=== PATIENT | female | born 2000 | race African-American/Black ===

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

== ENCOUNTER → 2018-04-10 | Outpatient (CLI) | payer MEDICAID ==
[2018-04-10 14:24] LABS: HEMATOCRIT 42.6 % (35.0-45.0); HEMOGLOBIN 13.6 g/dl (12.0-15.0); MEAN CELL VOLUME 83 fl (80.0-95.0); MEAN CORPUSCULAR HEMOGLOBIN 27 pg (26.0-32.0); MEAN CORPUSCULAR HGB CONC 32 g/dl (33.0-37.0); MEAN PLATELET VOLUME 10.3 fl (7.4-10.4); PLATELET COUNT 277 K/mm3 (130-400); RED BLOOD COUNT 5.12 M/mm3 (4.10-5.30); REDCELL DISTRIBUTION WIDTH-CV 13.7 % (11.5-14.5)
[2018-04-10 14:35] LABS: ALBUMIN 4.1 gm/dL (3.5-5.0); BILIRUBIN,TOTAL 0.7 mg/dL (0.0-1.0); CALCIUM 9.5 mg/dL (8.4-10.2); CHOLESTEROL RISK RATIO 4.4; CREATININE, serum 0.79 mg/dL (0.52-1.25); POTASSIUM 4.2 mmol/L (3.4-5.0); TOTAL PROTEIN 8.1 gm/dL (6.4-8.2)
[2018-04-10 14:50] LABS: HIV 1/2 Antibodies Non-Reactive; HIV-1p24 Antigen Non-Reactive
[2018-04-10 15:01] LABS: BAND 2 % (0-10); BASOPHIL 6 % (0-2); EOSINOPHIL 1 % (0-4); LYMPHOCYTE 50 % (20.0-51.0); MYELOCYTE 3 % (0-0); NEUTROPHILS 28 % (42.0-75.2); PLATELET ESTIMATE NORMAL (NORMAL)
[2018-04-10 15:05] LABS: TSH w REFLEX 3.63 uIU/mL (0.465-4.680)
== END ==
LOC: COL.LAB 11:06
PROVIDERS: Family Medicine
DX: Z01.419 Encounter for gynecological examination (general) (routine) without abnormal findings (principal); Z13.1 Encounter for screening for diabetes mellitus; Z13.220 Encounter for screening for lipoid disorders; Z11.3 Encounter for screening for infections with a predominantly sexual mode of transmission

== ENCOUNTER 2018-04-19 08:54 | Emergency (ER) | payer OTHER ==
[~2018-04-19] VITALS: Ht 162.6 cm; Wt 81.8 kg
[2018-04-19 08:56] VITALS: BP 104/59; TEMP 97.9
[2018-04-19] MEDS ORDERED: AMOXICILLIN 50500 MG PO (09:25)
[2018-04-19 09:29] VITALS: PULSE 97
== END 2018-04-19 09:30 | disposition home or self-care (01) ==
LOC: COL.ER 08:54
DX: J02.0 Streptococcal pharyngitis (principal)

== ENCOUNTER → 2018-05-31 | Outpatient (CLI) | payer OTHER ==
[~2018-05-31] MED LIST changes: +AMOXICILLIN 50500 MG PO
== END ==
LOC: COL.LAB 11:26
DX: Z11.3 Encounter for screening for infections with a predominantly sexual mode of transmission (principal); N91.2 Amenorrhea, unspecified

== ENCOUNTER → 2018-06-14 | Outpatient (CLI) | payer OTHER | LOC: ZCOL.LAB 11:33 | DX: N91.2 Amenorrhea, unspecified (principal) ==

== ENCOUNTER 2018-06-20 07:16 | Emergency (ER) | payer OTHER ==
[~2018-06-20] VITALS: Ht 162.6 cm; Wt 80.6 kg
[2018-06-20 07:20] VITALS: BP 118/75; TEMP 98.6
[2018-06-20 08:12] LABS: INFLUENZA A NEGATIVE; INFLUENZA B NEGATIVE
[2018-06-20 08:48] VITALS: PULSE 102
== END 2018-06-20 08:48 | disposition home or self-care (01) ==
LOC: COL.ER 07:16
PROVIDERS: Emergency Medicine
DX: J06.9 Acute upper respiratory infection, unspecified (principal)

== ENCOUNTER → 2018-08-08 | Outpatient (CLI) | payer OTHER | LOC: ZCOL.LAB 16:17 | DX: N89.8 Other specified noninflammatory disorders of vagina (principal) ==

== ENCOUNTER 2018-09-26 19:16 | Emergency (ER) | payer OTHER ==
[~2018-09-26] VITALS: Ht 162.6 cm; Wt 89.1 kg
[2018-09-26 19:21] VITALS: BP 123/79; TEMP 98
[2018-09-26 20:00] VITALS: PULSE 90
== END 2018-09-26 20:00 | disposition home or self-care (01) ==
LOC: COL.ER 19:16
DX: S09.90XA Unspecified injury of head, initial encounter (principal); S00.531A Contusion of lip, initial encounter; Y03.8XXA Other assault by crashing of motor vehicle, initial encounter

== ENCOUNTER 2018-10-26 01:48 | Emergency (ER) | payer OTHER ==
[~2018-10-26] VITALS: Ht 162.6 cm; Wt 87.7 kg
[2018-10-26 02:01] VITALS: BP 116/58; TEMP 98.8
[2018-10-26] MEDS ORDERED: ILOTYCIN5 MG/GM OP (05:26)
[2018-10-26 05:39] VITALS: PULSE 65
== END 2018-10-26 05:41 | disposition home or self-care (01) ==
LOC: COL.ER 01:48
DX: S01.112A Laceration without foreign body of left eyelid and periocular area, initial encounter (principal); Y04.0XXA Assault by unarmed brawl or fight, initial encounter; Y92.009 Unspecified place in unspecified non-institutional (private) residence as the place of occurrence of the external cause

== ENCOUNTER 2018-10-28 16:45 | Emergency (ER) | payer OTHER ==
[~2018-10-28] VITALS: Ht 162.6 cm; Wt 87.7 kg
[~2018-10-28 16:45] MED LIST changes: +ILOTYCIN5 MG/GM OP
[2018-10-28 16:55] VITALS: BP 121/59; PULSE 86; TEMP 97.9
== END 2018-10-28 17:44 | disposition left against medical advice (07) ==
LOC: COL.ER 16:45
DX: S05.32XA Ocular laceration without prolapse or loss of intraocular tissue, left eye, initial encounter (principal); Y04.0XXA Assault by unarmed brawl or fight, initial encounter

== ENCOUNTER → 2018-11-23 | Outpatient (CLI) | payer OTHER | LOC: ZCOL.LAB 16:14 | DX: Z11.3 Encounter for screening for infections with a predominantly sexual mode of transmission (principal); Z87.42 Personal history of other diseases of the female genital tract ==

== ENCOUNTER 2019-03-22 03:01 | Emergency (ER) | payer OTHER ==
[~2019-03-22] VITALS: Ht 162.6 cm; Wt 84.1 kg
[2019-03-22 03:04] VITALS: TEMP 97.2
[2019-03-22 03:20] LABS: COLLECTION METHOD CLEAN CATCH
[2019-03-22 03:26] LABS: MUCOUS Present /lpf; PH 6 (5-8); URINE APPEARANCE Clear; URINE BACTERIA None Seen /hpf; URINE BILIRUBIN Negative (NEGATIVE); URINE BLOOD Negative (NEGATIVE); URINE COLOR Straw; URINE GLUCOSE Negative (NEGATIVE); URINE KETONE Negative (NEGATIVE); URINE LEUKOCYTE ESTERASE Negative (NEGATIVE); URINE NITRATE Negative (NEGATIVE); URINE PROTEIN(semi-quant) Negative (NEGATIVE); URINE RBC None Seen /hpf; URINE UROBILINOGEN Negative (NEGATIVE)
[2019-03-22 03:31] LABS: BASO % 0.4 % (0.0-2.0); EOS # 0.1 (0.0-0.7); EOS % 1.2 % (0-4.0); GRAN # 4.1 (1.4-6.5); GRAN % 43.2 % (42.2-75.2); HEMATOCRIT 40.4 % (35.0-45.0); HEMOGLOBIN 13.3 g/dl (12.0-15.0); LYMPH # 4.5 (1.2-3.4); LYMPH % 46.6 % (20.0-51.0); MEAN CELL VOLUME 83 fl (80.0-95.0); MEAN CORPUSCULAR HEMOGLOBIN 27 pg (26.0-32.0); MEAN CORPUSCULAR HGB CONC 33 g/dl (33.0-37.0); MEAN PLATELET VOLUME 9.5 fl (7.4-10.4); MONO # 0.8 (0.1-0.6); MONO % 8.4 % (1.7-9.3); PLATELET COUNT 267 K/mm3 (130-400); RED BLOOD COUNT 4.87 M/mm3 (4.10-5.30)
[2019-03-22] MEDS ORDERED: PRENATAL (03:31)
[2019-03-22 03:40] LABS: ALANINE AMINOTRANSFERASE < 6 U/L (9-52); ALBUMIN 4.3 gm/dL (3.5-5.0); ALKALINE PHOSPHATASE 74 U/L (50-136); ANION GAP 13 mmol/L (7-16); AST,SGOT 21 U/L (15-37); BILIRUBIN,TOTAL 0.3 mg/dL (0.0-1.0); BLOOD UREA NITROGEN 13 mg/dL (7-17); CALCIUM 9.4 mg/dL (8.4-10.2); CARBON DIOXIDE 19 mmol/L (22-30); CHLORIDE 109 mmol/L (98-107); CREATININE, serum 0.75 (0.52-1.25); GLUCOSE 88 mg/dL (74-106); LIPASE 214 U/L (23-300); POTASSIUM 3.9 mmol/L (3.4-5.0); SODIUM 141 mmol/L (137-145); TOTAL PROTEIN 7.9 gm/dL (6.4-8.2)
[2019-03-22 03:56] LABS: HCG,QUANTITATIVE 14618 mIU/mL (0-5)
[2019-03-22] MEDS ORDERED: PHENERGAN 25 TA25 MG PO (04:29)
[2019-03-22 04:35] VITALS: BP 102/59; PULSE 88
== END 2019-03-22 04:35 | disposition home or self-care (01) ==
LOC: COL.ER 03:01
PROVIDERS: Emergency Medicine
DX: O21.9 Vomiting of pregnancy, unspecified (principal); Z3A.01 Less than 8 weeks gestation of pregnancy
CPT/HCPCS: J2550; J7030

== ENCOUNTER 2019-05-17 18:30 | Emergency (ER) | payer OTHER ==
[~2019-05-17] VITALS: Ht 160 cm; Wt 85.5 kg
[~2019-05-17 18:30] MED LIST changes: +PHENERGAN 25 TA25 MG PO; +PRENATAL
[2019-05-17 19:04] LABS: COLLECTION METHOD CLEAN CATCH
[2019-05-17 19:10] LABS: BASO % 0.3 % (0.0-2.0); EOS # 0.2 (0.0-0.7); GRAN # 5.1 (1.4-6.5); GRAN % 54.1 % (42.2-75.2); HEMATOCRIT 40.7 % (35.0-45.0); HEMOGLOBIN 13.6 g/dl (12.0-15.0); LYMPH # 3.1 (1.2-3.4); LYMPH % 32.7 % (20.0-51.0); MEAN CELL VOLUME 83 fl (80.0-95.0); MEAN CORPUSCULAR HEMOGLOBIN 28 pg (26.0-32.0); MEAN CORPUSCULAR HGB CONC 33 g/dl (33.0-37.0); MEAN PLATELET VOLUME 9.7 fl (7.4-10.4); MONO % 10.6 % (1.7-9.3); PLATELET COUNT 256 K/mm3 (130-400); RED BLOOD COUNT 4.88 M/mm3 (4.10-5.30); REDCELL DISTRIBUTION WIDTH-CV 14.2 % (11.5-14.5)
[2019-05-17 19:13] LABS: BUDDING YEAST Present /hpf; PH 7 (5-8); URINE APPEARANCE Cloudy; URINE BACTERIA Rare /hpf; URINE BILIRUBIN Negative (NEGATIVE); URINE BLOOD Negative (NEGATIVE); URINE COLOR Yellow; URINE GLUCOSE Negative (NEGATIVE); URINE KETONE Negative (NEGATIVE); URINE LEUKOCYTE ESTERASE Negative (NEGATIVE); URINE NITRATE Negative (NEGATIVE); URINE PROTEIN(semi-quant) Negative (NEGATIVE); URINE UROBILINOGEN Negative (NEGATIVE)
[2019-05-17 19:18] LABS: ALBUMIN 4.4 gm/dL (3.5-5.0); BILIRUBIN,TOTAL 0.4 mg/dL (0.0-1.0); CALCIUM 9.7 mg/dL (8.4-10.2); CREATININE, serum 0.59 (0.52-1.25); POTASSIUM 3.9 mmol/L (3.4-5.0); TOTAL PROTEIN 8.2 gm/dL (6.4-8.2)
[2019-05-17 20:37] VITALS: BP 126/68; PULSE 89; TEMP 98.4
== END 2019-05-17 20:37 | disposition home or self-care (01) ==
LOC: COL.ER 18:30
PROVIDERS: Physician Assistant
DX: O99.512 Diseases of the respiratory system complicating pregnancy, second trimester (principal); J06.9 Acute upper respiratory infection, unspecified; Z3A.14 14 weeks gestation of pregnancy
CPT/HCPCS: J1200; J2765; J7030

== ENCOUNTER 2019-06-27 11:20 | Emergency (ER) | payer OTHER ==
[~2019-06-27] VITALS: Ht 160 cm; Wt 86.8 kg
[2019-06-27 12:19] LABS: STREP SCREEN NEGATIVE
[2019-06-27 13:12] VITALS: BP 99/51; PULSE 99; TEMP 98.4
== END 2019-06-27 13:15 | disposition home or self-care (01) ==
LOC: COL.ER 11:20
PROVIDERS: Physician Assistant
DX: O26.892 Other specified pregnancy related conditions, second trimester (principal); J06.9 Acute upper respiratory infection, unspecified; E03.9 Hypothyroidism, unspecified; Z3A.20 20 weeks gestation of pregnancy

== ENCOUNTER 2019-07-16 20:33 | Emergency (ER) | payer OTHER ==
[~2019-07-16] VITALS: Ht 160 cm; Wt 87.3 kg
[2019-07-16 20:42] VITALS: BP 108/60; TEMP 97.7
[2019-07-16 20:54] LABS: COLLECTION METHOD CLEAN CATCH
[2019-07-16 21:06] LABS: MUCOUS Present /lpf; PH 6 (5-8); URINE APPEARANCE Hazy; URINE BACTERIA None Seen /hpf; URINE BILIRUBIN Negative (NEGATIVE); URINE BLOOD Negative (NEGATIVE); URINE COLOR Yellow; URINE GLUCOSE Negative (NEGATIVE); URINE KETONE 1+ (NEGATIVE); URINE LEUKOCYTE ESTERASE Negative (NEGATIVE); URINE NITRATE Negative (NEGATIVE); URINE PROTEIN(semi-quant) Negative (NEGATIVE); URINE RBC 0-2 /hpf; URINE UROBILINOGEN Negative (NEGATIVE)
[2019-07-16 21:14] LABS: BASO % 0.1 % (0.0-2.0); EOS # 0.1 (0.0-0.7); EOS % 1.2 % (0-4.0); GRAN # 5.1 (1.4-6.5); GRAN % 60.9 % (42.2-75.2); HEMATOCRIT 37.7 % (35.0-45.0); HEMOGLOBIN 12.3 g/dl (12.0-15.0); LYMPH # 2.6 (1.2-3.4); LYMPH % 30.4 % (20.0-51.0); MEAN CELL VOLUME 85 fl (80.0-95.0); MEAN CORPUSCULAR HEMOGLOBIN 28 pg (26.0-32.0); MEAN CORPUSCULAR HGB CONC 33 g/dl (33.0-37.0); MEAN PLATELET VOLUME 9.9 fl (7.4-10.4); MONO # 0.6 (0.1-0.6); PLATELET COUNT 244 K/mm3 (130-400); RED BLOOD COUNT 4.46 M/mm3 (4.10-5.30); REDCELL DISTRIBUTION WIDTH-CV 13.4 % (11.5-14.5)
[2019-07-16 21:32] LABS: ALANINE AMINOTRANSFERASE 22 U/L (9-52); ALBUMIN 3.9 gm/dL (3.5-5.0); ALKALINE PHOSPHATASE 72 U/L (50-136); ANION GAP 9 mmol/L (7-16); AST,SGOT 24 U/L (15-37); BILIRUBIN,TOTAL 0.3 mg/dL (0.0-1.0); BLOOD UREA NITROGEN 5 mg/dL (7-17); CALCIUM 9.2 mg/dL (8.4-10.2); CARBON DIOXIDE 20 mmol/L (22-30); CHLORIDE 107 mmol/L (98-107); CREATININE, serum 0.67 (0.52-1.25); GLUCOSE 114 mg/dL (74-106); POTASSIUM 3.6 mmol/L (3.4-5.0); SODIUM 137 mmol/L (137-145); TOTAL PROTEIN 7.4 gm/dL (6.4-8.2)
[2019-07-16 21:34] LABS: C-REACTIVE PROTEIN < 0.5 mg/dL (0.0-0.9)
[2019-07-16 22:29] VITALS: PULSE 94
== END 2019-07-16 22:27 | disposition home or self-care (01) ==
LOC: COL.ER 20:33
PROVIDERS: Emergency Medicine
DX: O26.892 Other specified pregnancy related conditions, second trimester (principal); R10.2 Pelvic and perineal pain; H53.8 Other visual disturbances; Z3A.22 22 weeks gestation of pregnancy

== ENCOUNTER 2019-09-06 06:56 | Outpatient (CLI) | payer OTHER ==
[~2019-09-06] VITALS: Ht 160 cm; Wt 89.1 kg
--- NOTE | 2019-09-06 07:05 | NUR ---
Presents to labor and delivery. States having pain upper stomach, and back. Assessment done, questions offered and answered.
[2019-09-06 07:22] VITALS: BP 117/68; PULSE 107; TEMP 97.9
[2019-09-06] MEDS ORDERED: SYNTHROID 0.0.025 MG PO (07:33)
--- NOTE | 2019-09-06 08:30 | NUR ---
0336 Dr. Vázquezure here to do vag exam. Reports cervix closed.
--- NOTE | 2019-09-06 09:00 | NUR ---
Rests in bed, alert. Tylenol 1000 mg given as ordered. States still feeling some pain in the top of stomach. Let her know that we are going to do a urine test. Explained to patient what to do.
[2019-09-06 09:36] LABS: COLLECTION METHOD CLEAN CATCH
[2019-09-06 10:00] LABS: MUCOUS Present /lpf; PH 5 (5-8); SQUAMOUS EPITHELIAL 0-2 /hpf; URINE APPEARANCE Clear; URINE BACTERIA None Seen /hpf; URINE BILIRUBIN Negative (NEGATIVE); URINE BLOOD Negative (NEGATIVE); URINE COLOR Yellow; URINE GLUCOSE Negative (NEGATIVE); URINE KETONE 2+ (NEGATIVE); URINE LEUKOCYTE ESTERASE Negative (NEGATIVE); URINE NITRATE Negative (NEGATIVE); URINE PROTEIN(semi-quant) Negative (NEGATIVE); URINE RBC 0-2 /hpf; URINE UROBILINOGEN Negative (NEGATIVE)
--- NOTE | 2019-09-06 10:00 | NUR ---
Let patient know that urine results were good. Discharge instructions given, verbalizes understanding. Dismissed to home, ambulatory, stable, alert.
== END 2019-09-06 10:15 | disposition home or self-care (01) ==
LOC: LDRO 06:56
PROVIDERS: Obstetrics & Gynecology
DX: O26.893 Other specified pregnancy related conditions, third trimester (principal); R10.9 Unspecified abdominal pain; M54.9 Dorsalgia, unspecified; Z3A.30 30 weeks gestation of pregnancy

== ENCOUNTER 2019-11-05 07:47 | Outpatient (CLI) | payer OTHER ==
[~2019-11-05] VITALS: Ht 160 cm; Wt 92.3 kg
[~2019-11-05 07:47] MED LIST changes: +SYNTHROID 0.0.025 MG PO
--- NOTE | 2019-11-05 07:50 | NUR ---
Pt arrives on unit ambulatory with male acquaintance. Pt states irregular abdominal pain since 11/03/19 after losing mucus plug. "Pain comes and goes, nothing consistent." Denies vaginal bleeding, LOF and reports GFM. EFM and toco applied. VSS. SVE per this RN /. Admission assessment completed. Dr. Duncan on unit. Reviews pt hx. See physician notification.
[2019-11-05 08:00] VITALS: BP 121/70; PULSE 90; TEMP 97.6
[2019-11-05 08:45] VITALS: BP 118/64; PULSE 100
--- NOTE | 2019-11-05 08:55 | NUR ---
PATIENT RESTS ON RIGHT SIDE. STATES BABY IS VERY ACTIVE. DENIES CONTRACTIONS.
--- NOTE | 2019-11-05 08:57 | NUR ---
0800 PATIENT HERE FROM HOME STATING LOST MUCUS PLUG COUPLE DAYS AGO AND IS HAVING OCCASIONAL PAINS SINCE THEN. EFM ON FHR 130 BABY VERY ACTIVE. SVE BY Lesley MONAHAN UNCHANGED FROM OFFICE EXAM.
[2019-11-05 09:02] VITALS: PULSE 100
--- NOTE | 2019-11-05 09:02 | NUR ---
0900 NO CONTRCATIONS NOTED AND BABY VERY ACTIVE. DENTEODORA NEEDS DR HORVATH REVIEWED STRIP AND ORDERS TO DISMISS TO HOME. ALL DISCHARGE INSTRUCTIONS GIVEN TO PATIENT AND FRIEND. DENTEODORA NEEDS PATIENT DISMISSED AT THIS TIME
== END 2019-11-05 09:09 | disposition home or self-care (01) ==
LOC: LDRO 07:47
DX: O26.893 Other specified pregnancy related conditions, third trimester (principal); Z3A.38 38 weeks gestation of pregnancy

== ENCOUNTER 2021-06-07 22:33 | Emergency (ER) | payer MEDICAID ==
[~2021-06-07] VITALS: Ht 160 cm; Wt 90.9 kg
[~2021-06-07 22:33] MED LIST changes: +MOTRIN 800800 MG/TAB PO; +PERCOCET 325 MG1 TA2 PO; +SYNTHROID0.05 MG/TA PO
[2021-06-08] MEDS ORDERED: PEPCID40 MG PO (01:52)
[2021-06-08 02:25] VITALS: BP 138/76; PULSE 83; TEMP 98.6
== END 2021-06-08 02:25 | disposition home or self-care (01) ==
LOC: COL.ER 22:33
DX: R12 Heartburn (principal); F17.290 Nicotine dependence, other tobacco product, uncomplicated

== ENCOUNTER 2021-08-21 13:16 | Emergency (ER) | payer MEDICAID ==
[~2021-08-21] VITALS: Ht 160 cm; Wt 103.2 kg
[~2021-08-21 13:16] MED LIST changes: +PEPCID40 MG PO
[2021-08-21 14:44] VITALS: BP 110/64; PULSE 110; TEMP 100.5
== END 2021-08-21 14:45 | disposition home or self-care (01) ==
LOC: COL.ER 13:16
DX: U07.1 COVID-19 (principal); F17.210 Nicotine dependence, cigarettes, uncomplicated